=== PATIENT | male | born 1990 | race Caucasian/White ===

== ENCOUNTER 2024-02-25 20:10 | Emergency (ER) | payer SELFPAY ==
[2024-02-25] VITALS (23 sets, daily range): BP systolic 116–165; BP diastolic 80–121; PULSE 69–98; RESP 16–18; TEMP 36.7; O2SAT 93–99; BMI 25.7
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
[2024-02-25 20:44] LABS: Basophils % 0.3 %; Eosinophils # 0.1 10^3/uL (0.0-0.8); Eosinophils % 1.2 %; Hematocrit 45.7 % (37-53); Lymphocytes # 2.7 10^3/uL (0.8-4.8); Lymphocytes % 23.9 %; Mean Corpuscular HGB Conc 34.1 g/dL (30-55); Mean Corpuscular Hemoglobin 30.6 pg (27-33); Mean Corpuscular Volume 89.6 fl (82-101); Monocytes # 0.8 10^3/uL (0.2-0.9); Monocytes % 6.7 %; Neutrophils # 7.62 10^3/uL (1.8-7.7); Neutrophils % 67.6 %; Nucleated Red Blood Cells % 0 %; Platelet Count 217 10^3/cmm (157-399); Red Cell Distribution Width 12.3 % (12.1-15.1); White Blood Count 11.27 10^3/uL (3.29-11.43)
[2024-02-25 20:55] LABS: Alanine Aminotransferase 113 U/L (0-41); Albumin Level 4.9 g/dL (3.5-5.2); Alkaline Phosphatase 87 U/L (40-130); Aspartate Amino Transferase 82 U/L (0-40); Blood Urea Nitrogen 24 mg/dL (6-20); Calcium 9.8 mg/dL (8.5-10.5); Carbon Dioxide 24 mmol/L (22-29); Chloride 96 mmol/L (98-107); Creatinine Clr Calc Pharmacy 109.4767; Globulin 2.8 g/dL (1.3-4.6); Glomerular Filtration Rate 77.1 mL/min (90-130); Glucose 160 mg/dL (65-115); Osmolality Calculated 289 mOsm/kg (285-295); Sodium 136 mmol/L (136-145); Total Bilirubin 0.4 mg/dL (0.15-1.2); Total Protein 7.7 g/dL (6.6-8.7)
[2024-02-25 20:58] LABS: Creatine Phosphokinase 377 U/L (39-308)
[2024-02-25] MEDS: morphine 4 mg/mL SDV 1 mL IVP ×2 (21:03→22:16)
[2024-02-25] MEDS: ceFAZolin 2,000 mg SDV 2000 MG IVP (21:03)
[2024-02-25] MEDS: ondansetron 2 mg/ML SDV 2 mL 4 MG IVP ×2 (21:03→22:16)
[2024-02-25] MEDS: sodium chloride 0.9% 1,000 ML 999 ML IV (21:04)
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
[2024-02-25] MEDS: lidocaine-epi 2% 20 mL INJ INJECTION (22:15)
[2024-02-25] MEDS: tetanus-dipt-pertussis 0.5 mL SDV IM (22:16)
--- NOTE | 2024-02-25 22:35 | PC.NURSE ---
wound on right elbow irrigated with 500mls of NS. wet to dry dressing applied to the pts right elbow.
== END 2024-02-25 23:07 | disposition home or self-care (01) ==
PROVIDERS: Emergency Provider Physician Assistant
DX: S40.811A Abrasion of right upper arm, initial encounter (principal); S51.011A Laceration without foreign body of right elbow, initial encounter; S20.311A Abrasion of right front wall of thorax, initial encounter; S80.212A Abrasion, left knee, initial encounter; S80.211A Abrasion, right knee, initial encounter; S60.512A Abrasion of left hand, initial encounter; S60.511A Abrasion of right hand, initial encounter; V20.49XA Other motorcycle driver injured in collision with pedestrian or animal in traffic accident, initial encounter; Z23 Encounter for immunization
CPT/HCPCS: 71100; 73030; 73080; 80053; 82550; 85025; 90471; 90715; 96374; 96375; 96376; 99284; J0690; J2270; J2405; J7030